=== PATIENT | female | born 1965 | race Caucasian/White ===

== ENCOUNTER 2016-10-10 22:35 | Emergency (ER) | payer BC ==
[~2016-10-10] VITALS: Ht 170.1 cm; Wt 108.9 kg
[~2016-10-10 22:35] MED LIST: ADVAIR 100/501 E1 INH; ASPIR-LOW81 MG PO; B-COMPLEX-501 CAP PO; CYCLOBENZAPRINE5 M3 PO; DAYPRO600 M1 PO; DOXYCYCLINE100 M3 PO; DOXYCYCLINE75 MG PO; DUONEB 3 MG/3 ML3 ML IH; FOLIC ACID1 MG PO; HYDROCODONE BIT1 T11 PO; IBU-8800 MG PO; Lovenox40 MG/0.4 PO; Lovenox40 MG/0.4 SC; MEDROL DOSEPAK4 MG PO; NORCO 5-325 TA1 EACH PO; NORFLEX100 MG PO; PREDNISONE10 MG PO; PROAIR HFA0.09 MG/AC IH; ROBAXIN750 MG PO; SINGULAIR10 MG PO; TRAMADOL HCL50 MG PO; ULTRAM50 MG PO; VICODIN 5/500 505 MG PO; VICODIN 500 MG-1 TAB PO; VICODIN ES 7501 TAB PO; VOLTAREN50 M1 PO
[2016-10-10 22:38] VITALS: BP 162/85
[2016-10-10] MEDS ORDERED: MEDROL DOSEPAK4 MG PO (23:21)
== END 2016-10-10 23:48 | disposition home or self-care (01) ==
LOC: ED 22:35
DX: M54.16 Radiculopathy, lumbar region (principal); Z88.0 Allergy status to penicillin; Z79.82 Long term (current) use of aspirin

== ENCOUNTER 2017-01-09 09:07 | Emergency (ER) | payer BC ==
[~2017-01-09] VITALS: Ht 170.1 cm; Wt 113.4 kg
[2017-01-09 09:12] VITALS: BP 136/57
[2017-01-09] MEDS ORDERED: NAPROSYN500 MG PO (09:14)
== END 2017-01-09 11:16 | disposition home or self-care (01) ==
LOC: ED 09:07
DX: S82.831A Other fracture of upper and lower end of right fibula, initial encounter for closed fracture (principal); R03.0 Elevated blood-pressure reading, without diagnosis of hypertension; M54.2 Cervicalgia; M54.6 Pain in thoracic spine; M79.671 Pain in right foot; M25.571 Pain in right ankle and joints of right foot; Z79.82 Long term (current) use of aspirin; Z88.0 Allergy status to penicillin; W10.9XXA Fall (on) (from) unspecified stairs and steps, initial encounter; Y93.89 Activity, other specified; Y92.89 Other specified places as the place of occurrence of the external cause; Y99.8 Other external cause status

== ENCOUNTER 2017-01-21 11:04 | Emergency (ER) | payer BC ==
[~2017-01-21] VITALS: Ht 170.1 cm; Wt 108.9 kg
[~2017-01-21 11:04] MED LIST changes: +NAPROSYN500 MG PO
[2017-01-21 11:15] VITALS: BP 145/90
== END 2017-01-21 13:57 | disposition home or self-care (01) ==
LOC: ED 11:04
DX: S43.402A Unspecified sprain of left shoulder joint, initial encounter (principal); M79.602 Pain in left arm; H92.02 Otalgia, left ear; Z88.0 Allergy status to penicillin; Z79.82 Long term (current) use of aspirin; W10.9XXA Fall (on) (from) unspecified stairs and steps, initial encounter; Y93.9 Activity, unspecified; Y92.89 Other specified places as the place of occurrence of the external cause; Y99.9 Unspecified external cause status

== ENCOUNTER 2017-10-06 11:36 | Emergency (ER) | payer BC ==
[~2017-10-06] VITALS: Ht 170.1 cm; Wt 117.9 kg
[2017-10-06 11:39] VITALS: BP 147/69
[2017-10-06] MEDS ORDERED: PREDNISONE20 M1 PO (13:27)
[2017-10-06] MEDS ORDERED: ROBAXIN500 M1 PO (13:27)
== END 2017-10-06 13:30 | disposition home or self-care (01) ==
LOC: ED 11:36
DX: M54.41 Lumbago with sciatica, right side (principal); G89.29 Other chronic pain; Z88.0 Allergy status to penicillin

== ENCOUNTER 2017-12-22 13:33 | Emergency (ER) | payer BC ==
[~2017-12-22] VITALS: Ht 170.1 cm; Wt 122.5 kg
[~2017-12-22 13:33] MED LIST changes: +PREDNISONE20 M1 PO; +ROBAXIN500 M1 PO
[2017-12-22 13:34] VITALS: BP 129/83
[2017-12-22] MEDS ORDERED: GLUCOPHAGE500 M1 PO (13:37)
[2017-12-22 14:03] LABS: BASO % 0.5 % (0.0-1.0); EOS # 0.2 10*3/uL (0.0-0.4); EOS % 2.3 % (1.0-4.0); HEMATOCRIT 37.6 % (37.0-47.0); HEMOGLOBIN 12.2 g/dl (12.0-16.0); LYMPH # 2.4 10*3/uL (1.3-4.4); MEAN CELL VOLUME 85.1 fl (81.0-99.0); MEAN CORPUSCULAR HGB 27.6 pg (27.0-31.0); MEAN CORPUSCULAR HGB CONC 32.4 g/dl (33.0-37.0); MONO # 0.5 10*3/uL (0.1-1.0); MONO % 5.7 % (3.0-9.0); NEUT # 5.1 10*3/uL (2.3-7.9); NEUT % 62.1 % (47.0-73.0); PLATELET COUNT AUTOMATED 321 10*3/uL (130-400); RED BLOOD COUNT 4.42 10*6/uL (4.10-5.10); RED CELL DISTRI WIDTH 13.7 % (0-14.5); WHITE BLOOD COUNT 8.3 10*3/uL (4.8-10.8)
[2017-12-22 14:09] LABS: BILIRUBIN NEGATIVE (NEGATIVE); BLOOD 2+ (NEGATIVE); CLARITY CLEAR (CLEAR); COLOR YELLOW (YELLOW); GLUCOSE NEGATIVE (NEGATIVE); KETONE NEGATIVE (NEGATIVE); LEUKO ESTERASE NEGATIVE (NEGATIVE); NITRITE NEGATIVE (NEGATIVE); PH 5.5 (5.0-9.0); SPECIFIC GRAVITY >= 1.030 (1.005-1.030)
[2017-12-22 14:13] LABS: ACT PARTIAL THROMBO TIME 22.7 SECONDS (20.8-31.5); INTERNATIONAL NORM RATIO 0.9 (2.0-3.5)
[2017-12-22 14:17] LABS: ALBUMIN 3.2 gm/dl (3.1-4.5); ALKALINE PHOSPHATASE 85 U/L (45-117); BUN 8 mg/dl (7-24); CHLORIDE 107 mmol/L (98-107); CREATININE 0.71 mg/dL (0.55-1.02); LIPASE 119 U/L (73-393); POTASSIUM 3.7 mmol/L (3.5-5.1); SGOT/AST 14 IU/L (3-35); SGPT/ALT 24 U/L (12-78); SODIUM 140 mmol/L (136-145); TOTAL PROTEIN 6.9 gm/dL (6.4-8.2)
[2017-12-22 14:23] LABS: RBC 0-2 rbc/hpf (0-2); WBC 0-2 wbc/hpf (0-5)
[2017-12-22 14:24] LABS: BACTERIA 1+
[2017-12-22] MEDS ORDERED: ZOFRAN ODT4 MG SL (14:59)
== END 2017-12-22 15:15 | disposition home or self-care (01) ==
LOC: ED 13:33
PROVIDERS: Emergency Medicine
DX: K76.0 Fatty (change of) liver, not elsewhere classified (principal); R53.83 Other fatigue; M54.5 Low back pain; G89.29 Other chronic pain; R11.0 Nausea; R10.84 Generalized abdominal pain; Z90.710 Acquired absence of both cervix and uterus; Z79.82 Long term (current) use of aspirin; Z88.0 Allergy status to penicillin

== ENCOUNTER 2019-02-06 15:42 | Emergency (ER) | payer OTHER ==
[~2019-02-06] VITALS: Ht 170.1 cm; Wt 122.5 kg
[2019-02-06 15:42] VITALS: BP 142/65
[~2019-02-06 15:42] MED LIST changes: +CIPRO500 MG PO; +GLUCOPHAGE500 M1 PO; +GLUCOPHAGE850 M1 PO; +VITAMIN D32000 UNI1 PO; +ZOFRAN ODT4 MG SL
== END 2019-02-06 19:18 | disposition home or self-care (01) ==
LOC: ED 15:42
DX: S72.001A Fracture of unspecified part of neck of right femur, initial encounter for closed fracture (principal); M54.5 Low back pain; E11.9 Type 2 diabetes mellitus without complications; Z88.0 Allergy status to penicillin; Z79.2 Long term (current) use of antibiotics; Z79.899 Other long term (current) drug therapy; Z79.82 Long term (current) use of aspirin; Z90.710 Acquired absence of both cervix and uterus; W18.39XA Other fall on same level, initial encounter; Y93.89 Activity, other specified; Y92.89 Other specified places as the place of occurrence of the external cause; Y99.8 Other external cause status

== ENCOUNTER 2019-06-09 11:03 | Emergency (ER) | payer OTHER ==
[~2019-06-09] VITALS: Ht 170.1 cm; Wt 117.9 kg
[2019-06-09 11:05] VITALS: BP 131/83
[2019-06-09] MEDS ORDERED: NAPROSYN500 MG PO (13:26)
[2019-06-09] MEDS ORDERED: PREDNISONE50 MG PO (13:26)
== END 2019-06-09 13:42 | disposition home or self-care (01) ==
LOC: ED 11:03
DX: S09.90XA Unspecified injury of head, initial encounter (principal); J45.901 Unspecified asthma with (acute) exacerbation; Z88.0 Allergy status to penicillin; Z79.899 Other long term (current) drug therapy; Z79.82 Long term (current) use of aspirin; W01.198A Fall on same level from slipping, tripping and stumbling with subsequent striking against other object, initial encounter; Y93.89 Activity, other specified; Y92.89 Other specified places as the place of occurrence of the external cause; Y99.8 Other external cause status

== ENCOUNTER 2022-11-21 14:55 | Emergency (ER) | payer OTHER ==
[~2022-11-21] VITALS: Ht 170.1 cm; Wt 113.4 kg
[~2022-11-21 14:55] MED LIST changes: +PREDNISONE50 MG PO
[2022-11-21 15:12] VITALS: BP 132/89
== END 2022-11-21 18:49 | disposition home or self-care (01) ==
LOC: ED 14:55
DX: S76.911A Strain of unspecified muscles, fascia and tendons at thigh level, right thigh, initial encounter (principal); J45.909 Unspecified asthma, uncomplicated; Z88.0 Allergy status to penicillin; Z90.89 Acquired absence of other organs; Z90.710 Acquired absence of both cervix and uterus; Z98.890 Other specified postprocedural states; X58.XXXA Exposure to other specified factors, initial encounter; Y93.89 Activity, other specified; Y92.89 Other specified places as the place of occurrence of the external cause; Y99.8 Other external cause status

== ENCOUNTER 2023-04-27 15:20 | Emergency (ER) | payer OTHER ==
[~2023-04-27] VITALS: Ht 170.1 cm; Wt 113.4 kg
[2023-04-27 16:53] VITALS: BP 126/88
[2023-04-27] MEDS ORDERED: CELECOXIB100 M1 PO (16:56)
[2023-04-27] MEDS ORDERED: NEURONTIN300 MG PO (16:57)
[2023-04-27] MEDS ORDERED: LISINOPRIL20 MG PO (16:57)
[2023-04-27] MEDS ORDERED: MONTELUKAST SOD10 MG PO (16:57)
[2023-04-27 17:44] LABS: BASO % 0.3 % (0.0-1.0); EOS # 0.1 10*3/uL (0.0-0.4); EOS % 1.5 % (1.0-4.0); HEMATOCRIT 43.2 % (37.0-47.0); LYMPH # 2.6 10*3/uL (1.3-4.4); LYMPH % 28.9 % (27.0-41.0); MEAN CELL VOLUME 84.9 fl (81.0-99.0); MEAN CORPUSCULAR HGB 27.9 pg (27.0-31.0); MEAN CORPUSCULAR HGB CONC 32.9 g/dl (33.0-37.0); MEAN PLATELET VOLUME 9.7 fl (9.6-12.3); MONO # 0.6 10*3/uL (0.1-1.0); MONO % 6.4 % (3.0-9.0); NEUT # 5.6 10*3/uL (2.3-7.9); NEUT % 62.7 % (47.0-73.0); PLATELET COUNT AUTOMATED 387 10*3/uL (130-400); RED BLOOD COUNT 5.09 10*6/uL (4.10-5.10); RED CELL DISTRI WIDTH 13.4 % (0-14.5); WHITE BLOOD COUNT 8.9 10*3/uL (4.8-10.8)
[2023-04-27 18:06] LABS: ALKALINE PHOSPHATASE 96 U/L (46-116); BUN 10 mg/dl (9-23); CHLORIDE 105 mmol/L (98-107); LIPASE 37 U/L (12-53); POTASSIUM 3.8 mmol/L (3.4-5.1); SGPT/ALT 14 U/L (10-49); TOTAL PROTEIN 7.5 gm/dL (6.0-8.0)
[2023-04-27] MEDS ORDERED: FAMOTIDINE40 MG PO (19:03)
== END 2023-04-27 19:13 | disposition home or self-care (01) ==
LOC: ED 15:20
PROVIDERS: Family Medicine
DX: K44.9 Diaphragmatic hernia without obstruction or gangrene (principal); K21.9 Gastro-esophageal reflux disease without esophagitis; J45.909 Unspecified asthma, uncomplicated; Z88.0 Allergy status to penicillin; Z90.89 Acquired absence of other organs; Z90.710 Acquired absence of both cervix and uterus; Z98.890 Other specified postprocedural states

== ENCOUNTER 2024-11-13 18:16 | Emergency (ER) | payer OTHER ==
[~2024-11-13] VITALS: Ht 170.1 cm; Wt 103.0 kg
[~2024-11-13 18:16] MED LIST changes: +CELECOXIB100 M1 PO; +FAMOTIDINE40 MG PO; +LISINOPRIL20 MG PO; +MONTELUKAST SOD10 MG PO; +NEURONTIN300 MG PO
[2024-11-13 18:36] VITALS: BP 154/74
[2024-11-13] MEDS ORDERED: FAMOTIDINE 50 ML IV ONE (18:50)
[2024-11-13] MEDS ORDERED: Ondansetron Hydrochloride 4 MG/2 ML VIAL IV ONE (18:50)
[2024-11-13] MEDS ORDERED: MORPHINE Sulfate 2 MG/ML SYR IV ONE (18:50)
[2024-11-13] MEDS ORDERED: SODIUM CHLORIDE 0.9% 1,000 ML IV ONE (18:50)
[2024-11-13 19:03] LABS: BASO % 0.4 % (0.0-1.0); EOS # 0.1 10*3/uL (0.0-0.4); EOS % 1.4 % (1.0-4.0); HEMATOCRIT 34.7 % (37.0-47.0); MEAN CORPUSCULAR HGB 27.4 pg (27.0-31.0); MEAN CORPUSCULAR HGB CONC 32.6 g/dl (33.0-37.0); MEAN PLATELET VOLUME 9.5 fl (9.6-12.3); MONO # 0.6 10*3/uL (0.1-1.0); MONO % 6.9 % (3.0-9.0); NEUT # 4.7 10*3/uL (2.3-7.9); NEUT % 58.3 % (47.0-73.0); PLATELET COUNT AUTOMATED 345 10*3/uL (130-400); RED BLOOD COUNT 4.13 10*6/uL (4.10-5.10); RED CELL DISTRI WIDTH 13.5 % (0-14.5)
[2024-11-13 19:26] LABS: BUN 8 mg/dl (9-23); CHLORIDE 100 mmol/L (98-107); POTASSIUM 3.3 mmol/L (3.4-5.1)
== END 2024-11-13 22:19 | disposition left against medical advice (07) ==
LOC: ED 18:16
PROVIDERS: Emergency Medicine
DX: R07.2 Precordial pain (principal); I10 Essential (primary) hypertension; Z88.0 Allergy status to penicillin; Z79.899 Other long term (current) drug therapy; Z79.82 Long term (current) use of aspirin; Z90.710 Acquired absence of both cervix and uterus; Z90.89 Acquired absence of other organs; E11.9 Type 2 diabetes mellitus without complications